=== PATIENT | male | born 1985 | race Caucasian/White ===

== ENCOUNTER 2017-02-28 17:02 | Emergency (ER) | payer OTHER ==
[~2017-02-28] VITALS: Ht 167.6 cm; Wt 86.2 kg
[2017-02-28] MEDS ORDERED: PERCOCET 5MG/325MG TAB PO ONE (18:30)
--- NOTE | 2017-02-28 19:00 | REP ---
Clinical: Trauma. Technique: AP, lateral, bilateral oblique views. Findings: Age-related changes are appreciated. No obvious acute fracture or dislocation identified. Ankle mortise appears intact. Impression: No definite acute fracture or dislocation. Clinical correlation is recommended. If the patient remains symptomatic consider repeat evaluation at 5-7 days. Signed by Shukri Louis MD 02/28/2017 06:51 P
--- NOTE | 2017-02-28 19:00 | REP ---
Clinical: Trauma. Technique: AP and lateral views of the left tibia / fibula. Findings: No definite acute fracture or dislocation. Skeletal structures and joint spaces appear intact and normal for age. Impression: No acute fracture or dislocation identified. Signed by Shukri Louis MD 02/28/2017 06:52 P
[2017-02-28] MEDS ORDERED: PERC5TAB6 PO (19:13)
[2017-02-28 19:25] VITALS: BP 144/90
== END 2017-02-28 19:34 | disposition home or self-care (01) ==
LOC: M ED 18:32
DX: M79.662 Pain in left lower leg (principal); X58.XXXA Exposure to other specified factors, initial encounter; Y92.310 Basketball court as the place of occurrence of the external cause; Y93.67 Activity, basketball; Y99.8 Other external cause status